=== PATIENT | male | born 1995 | race Caucasian/White ===

== ENCOUNTER 2022-04-21 12:20 | Emergency (ER) | payer OTHER ==
[2022-04-21] MEDS ORDERED: Boostrix 0.5 ML (Tdap) VIAL (>/=7 yrs of age) ONE (13:20)
[2022-04-21] MEDS ORDERED: Lidocaine 1% MPF 2 ML VIAL ONE (13:20)
[2022-04-21] MEDS ORDERED: Bacitracin 1 PK ONE (14:13)
== END 2022-04-21 14:26 ==
LOC: EEVIPCON 12:20 → ERS 12:20
DX: S01.511A Laceration without foreign body of lip, initial encounter (principal); W06.XXXA Fall from bed, initial encounter; Z23 Encounter for immunization
CPT/HCPCS: 40650; 90471; 90715